=== PATIENT | male | born 1970 | race African-American/Black ===

== ENCOUNTER 2020-12-15 12:52 | Outpatient (CLI) | payer BC | END 2020-12-15 12:53 | disposition home or self-care (01) | LOC: TBSIIMAG 12:52 | PROVIDERS: ATTEND Urology | DX: C61 Malignant neoplasm of prostate (principal) | CPT/HCPCS: 72197 ==

== ENCOUNTER 2021-03-17 10:45 | Outpatient (CLI) | payer BC ==
[2021-03-17 14:58] LABS: Hemoglobin 15.4 g/dL (14.0-18.0); Mean Corpuscular HGB CONC 32.3 g/dL (32.0-36.0); Mean Corpuscular Hemoglobin 30.6 pg (27.0-31.0); Mean Corpuscular Volume 94.7 fL (78.0-98.0); Mean Platelet Volume 7.8 fL (7.4-10.4); Platelet Count 168 thou/uL (130-400); RBC Distribution Width 11.9 % (11.5-14.5); Red Blood Cell (RBC) Count 5.02 mill/uL (4.70-6.10)
[2021-03-17 15:27] LABS: Anion Gap 9 mmol/L (10-20); BUN (Urea Nitrogen) 9 mg/dL (8.4-25.7); Calc. Creatinine Clearance 0 mL/min (70-130); Carbon Dioxide 29 mmol/L (22-29); Chloride 105 mmol/L (98-107); Glucose 108 mg/dL (70-105); Sodium 139 mmol/L (136-145)
[2021-03-17 16:09] LABS: PTT 32.2 sec (22.9-36.1); Prothrombin Time 13.4 sec (12.0-14.7)
[2021-03-17 16:18] LABS: Bilirubin Negative (Negative); Blood, Urine Negative (Negative); Clarity Turbid (Clear); Glucose, Urine (Dipstick) Normal (Negative); Ketone, Urine Negative (Negative); Leukocyte Negative Leu/uL (Negative); Nitrite Negative (Negative); Protein, Urine (Dipstick) 10 mg/dL (Neg-Trace); RBC/HPF 0-3 HPF (0-3); Specific Gravity, Urine 1.022 (1.002-1.036); Squamous Epithelial None Seen HPF (0-3); Urobilinogen Normal mg/dL (Less than 2); WBC/HPF None Seen HPF (0-3)
[2021-03-17 16:20] LABS: Bacteria/HPF 1+ HPF (None Seen)
[2021-03-17 16:21] LABS: Urine Culture Reflex Yes Yes
[2021-03-17 20:04] LABS: Follow-up Chemistry Comp? YES; Follow-up Result - Chemistry REPORT FAXED
== END 2021-03-17 10:46 | disposition home or self-care (01) ==
LOC: SCSRAD 10:45
DX: C61 Malignant neoplasm of prostate (principal)
CPT/HCPCS: 36415; 71046; 80048; 81001; 85027; 85610; 85730; 87086